=== PATIENT | female | born 1955 | race Caucasian/White ===

== ENCOUNTER 2019-11-04 16:19 | Observation (INO) | payer BC ==
[~2019-11-04] VITALS: Ht 170.2 cm; Wt 96.4 kg
[2019-11-04] MEDS ORDERED: COZAAR100 MG PO (16:29)
[2019-11-04] MEDS ORDERED: SYNTHROID100 MCG (16:29)
[2019-11-04] MEDS ORDERED: LIPITOR10 MG PO (16:29)
[2019-11-04 17:10] LABS: BASOPHILS 0.2 % (0-2); EOSINOPHILS 0.1 % (0-7); HEMATOCRIT 38.5 % (36.0-48.0); IMMATURE GRANULOCYTES 0.2 % (0-5); LYMPHOCYTES 8.1 % (15-50); MCH 30.3 pg (26.0-34.0); MCHC 31.2 g/dL (31.0-37.0); MCV 97.2 fL (80.0-100.0); MEAN PLATELET VOLUME 9.6 fL (7.4-10.4); MONOCYTES 6.3 % (2-11); NEUTROPHILS 85.1 % (40-80); PLATELET COUNT 239 10x3/uL (130-400); RBC 3.96 10x6/uL (4.00-5.40); RDW 13.2 % (11.5-14.5)
[2019-11-04 17:20] LABS: CALC OSMOLALITY 282 mosm/kg (275-300); CALCIUM 8.1 mg/dL (8.5-10.1); CHLORIDE - SERUM 106 mmol/L (98-107); CREATININE - SERUM 0.9 mg/dL (0.6-1.3); GLUCOSE 133 mg/dL (74-106); SODIUM 140 mmol/L (136-145); UREA NITROGEN 17 mg/dL (7-18); eGFR NON AFRICAN AMERICAN 66 mL/min (90-120)
[2019-11-04 17:31] LABS: D-DIMER-QUANTITATIVE 0.37 ug/mLFEU (0.20-0.54)
[2019-11-04 17:37] LABS: APTT 27.7 SECONDS (22.8-39.4); INR 0.88 (0.85-1.17); PROTIME 11.9 SECONDS (11.6-15.0)
[2019-11-04 17:40] LABS: ALBUMIN 3.5 g/dL (3.4-5.0); ALKALINE PHOSPHATASE 102 U/L (30-120); ALT (SGPT) 27 U/L (10-68); CKMB 0.5 U/L (0.0-3.6); CREATINE KINASE 56 UL (21-215); MAGNESIUM - SERUM 1.8 mg/dL (1.8-2.4); PROTEIN - SERUM 6.5 g/dL (6.4-8.2); TROPONIN-I < 0.017 ng/mL (0.000-0.060)
--- NOTE | 2019-11-04 18:05 | NUR ---
REPORT RECEIVED FROM [place] IN ED. PATIENT TO UNIT SOON.
--- NOTE | 2019-11-04 18:13 | NUR ---
PATIENT BROUGHT TO UNIT VIA WHEELCHAIR. PATIENT ALERT/ORIENTED, AND AMBULATORY. PATIENT OUT OF CHAIR AND AMBULATED TO RESTROOM. DENIES CHEST PAIN OR DISCOMFORT AT THIS TIME. NO DISTRESS. 18 GAUGE IV TO RIGHT FA. CALL LIGHT WITHIN REACH. WHITE BOARD UPDATED.
[2019-11-04] MEDS ORDERED: NEXIUM20 MG PO (18:22)
[2019-11-04] MEDS ORDERED: LEVOXYL125 MCG PO (18:22)
[2019-11-04] MEDS ORDERED: HYDROCHLOROTHIA25 MG PO (18:23)
[2019-11-04] MEDS ORDERED: EFFEXOR XR75 MG PO (18:23)
[2019-11-04] MEDS ORDERED: DIFLUCAN150 MG PO (18:26)
--- NOTE | 2019-11-04 18:38 | NUR ---
PATIENT ORIENTATED TO ROOM, SANDWICH AND DIET SODA PROVIDED. PATIENT VERY PLEASANT. NO DISTRESS. CALL LIGHT WITHIN REACH.
[2019-11-04 20:00] VITALS: BP 98/60
[2019-11-04 22:31] LABS: CKMB 0.5 U/L (0.0-3.6); CREATINE KINASE 58 UL (21-215); TROPONIN-I < 0.017 ng/mL (0.000-0.060)
[2019-11-04 22:53] VITALS: BP 139/81; BMI 33.3
[2019-11-05] VITALS: BP 102/60
--- NOTE | 2019-11-05 00:09 | NUR ---
MEDICATED WITH MORPHINE AND ZOFRAN IV FOR CHEST PAIN/DISCOMFORT. PT IS NOW NPO FOR AM CARDIOLOGY CONSULT.
[2019-11-05 03:14] LABS: BASOPHILS 0.1 % (0-2); EOSINOPHILS 0.4 % (0-7); HEMATOCRIT 34.9 % (36.0-48.0); IMMATURE GRANULOCYTES 0.3 % (0-5); MCH 30.7 pg (26.0-34.0); MCHC 31.5 g/dL (31.0-37.0); MCV 97.5 fL (80.0-100.0); MEAN PLATELET VOLUME 9.5 fL (7.4-10.4); MONOCYTES 8.5 % (2-11); NEUTROPHILS 73.7 % (40-80); PLATELET COUNT 214 10x3/uL (130-400); RBC 3.58 10x6/uL (4.00-5.40); RDW 13.3 % (11.5-14.5); WBC 11.2 10x3/uL (4.8-10.8)
[2019-11-05 03:40] LABS: ALKALINE PHOSPHATASE 86 U/L (30-120); ALT (SGPT) 21 U/L (10-68); BILIRUBIN - TOTAL 0.37 mg/dL (0.2-1.3); CALC OSMOLALITY 280 mosm/kg (275-300); CALCIUM 7.9 mg/dL (8.5-10.1); CARBON DIOXIDE 29.5 mmol/L (21.0-32.0); CHLORIDE - SERUM 106 mmol/L (98-107); CKMB 0.9 U/L (0.0-3.6); CREATINE KINASE 55 UL (21-215); GLUCOSE 127 mg/dL (74-106); POTASSIUM - SERUM 4.4 mmol/L (3.5-5.1); PROTEIN - SERUM 5.9 g/dL (6.4-8.2); SODIUM 139 mmol/L (136-145); TROPONIN-I < 0.017 ng/mL (0.000-0.060); UREA NITROGEN 15 mg/dL (7-18); eGFR NON AFRICAN AMERICAN 59 mL/min (90-120)
[2019-11-05 04:00] VITALS: BP 106/60
[2019-11-05 08:00] VITALS: BP 99/59
[2019-11-05 10:33] VITALS: Ht 170.2 cm; Wt 96.4 kg
[2019-11-05 10:36] LABS: CKMB 0.8 U/L (0.0-3.6); CREATINE KINASE 66 UL (21-215); TROPONIN-I < 0.017 ng/mL (0.000-0.060)
[2019-11-05 11:00] VITALS: BP 117/68
--- NOTE | 2019-11-05 11:45 | NUR ---
BACK FROM STRESS TEST. DIET RESUMED.
--- NOTE | 2019-11-05 12:08 | NUR ---
LEAVING FOR 2ND HALF STRESS TEST BY W/C. WILL CONT. PLAN OF CARE.
[2019-11-05 12:24] LABS: CHOL - HDL RATIO 2.8 ratio (2.3-4.1); LDL-HDL RATIO 1.5 ratio (1.5-3.5); THYROID STIMULATING HORMONE 2.49 uIU/mL (0.36-3.74)
--- NOTE | 2019-11-05 19:39 | NUR ---
ALL DISCHARGE PAPERWORK COMPLETED BY OFF GOING NURSE AND IV WAS REMOVED. ALL BELONGINGS ACCOUNTED FOR. PT TAKEN BY WHEELCHAIR TO PERSONAL VEHICLE WITH HERE TO TAKE HER HOME.
== END 2019-11-05 20:04 | disposition home or self-care (01) ==
LOC: D.ER 16:19 → OBSVTIME 16:41 → D.M2 16:41
PROVIDERS: Emergency Medicine; Family Medicine; ADMIT Family Medicine; ATTEND Family Medicine
DX: R07.9 Chest pain, unspecified (principal); I10 Essential (primary) hypertension; E78.5 Hyperlipidemia, unspecified; E03.9 Hypothyroidism, unspecified